=== PATIENT | female | born 1975 | race Caucasian/White ===

== ENCOUNTER 2022-07-13 16:38 | Emergency (ER) | payer MEDICARE ==
[~2022-07-13] VITALS: Ht 167.6 cm; Wt 61.4 kg
[2022-07-13] MEDS ORDERED: NAPROXEN500 MG PO (18:28)
[2022-07-13] MEDS ORDERED: LORTAB 5/3255 MG PO (18:28)
[2022-07-13] MEDS ORDERED: CLINDAMYCIN HY150 MG PO (18:28)
[2022-07-13 18:38] VITALS: BP 119/68
== END 2022-07-13 18:46 | disposition home or self-care (01) ==
LOC: ED 16:38
DX: K04.7 Periapical abscess without sinus (principal); K02.9 Dental caries, unspecified; K08.409 Partial loss of teeth, unspecified cause, unspecified class